=== PATIENT | male | born 1960 | race Caucasian/White ===

== ENCOUNTER 2024-10-27 08:51 | Day surgery (SDC) | payer OTHER, SELFPAY ==
[2024-08-08 13:51] VITALS: BMI 28.1
--- NOTE | 2024-10-26 11:44 | WPDANESEPPF ---
Anes - Initial Pre Proc Eval Procedure: Operation Date: 10/27/24 11:15 Proposed Procedures p Colonoscopy - Marc King MD Date/Time: 10/26/24 11:44 Surgeon: Marc King MD Pre Op Diagnosis: Family history of Colon Polyps Patient Data Age: 64 Gender: M Height: 1.78 m Weight: 90 kg Allergies Allergy/AdvReac Type Severity Reaction Status Date / Time aspirin AdvReac Nausea Verified 10/27/24 10:16 Home Medications Medication Instructions Recorded Confirmed Type Fish Oil 1 tab-cap PO DIRECTED 10/10/24 10/27/24 History PreserVision Lutein 1 tab-cap PO DIRECTED 10/10/24 10/27/24 History Vitamin D3 1 tab-cap PO DIRECTED 10/10/24 10/27/24 History albuterol sulfate 90 mcg/actuation 2 puff inhalation DIRECTED 10/10/24 10/27/24 History aerosol inhaler magnesium 1 tablet PO DIRECTED 10/10/24 10/27/24 History potassium 1 tab-cap PO DIRECTED 10/10/24 10/27/24 History Patient hx anesthesia problems: none Family hx anesthesia problems: none Results Review: All pre-operative results and documents have been reviewed as part of the pre-operative evaluation. [facility] Past Medical History Medical History (Updated 10/27/24 @ 10:51 by Marc King MD) Asthma PVD (peripheral vascular disease) Social History Social History (Updated 10/27/24 @ 10:57 by Florentin Dior DO) Smoking packs per day: 1 Smoking cigarettes per day: 20.0 Years smoked: 50 Smoking pack-years: 50.00 Smoking status: Current every day smoker Tobacco type: cigarettes Living arrangements: with family Anes - Eval Final PreProcedure Day of Procedure 10/26/24 11:44 Patient weight: overweight Heart: regular rate and rhythm Lungs: clear to auscultation Airway: Mallampati scale class II Neurological: alert and oriented Last oral intake: >/= 8 hours ASA classification: III Emergent: no Anesthetic plan: proceed Anesthesia type and monitoring: general GIVS and standard monitoring Results Review: All pre-operative results and documents have been reviewed as part of the pre-operative evaluation. Informed Consent: The patient's anesthetic plan and its attendant risks and benefits were discussed with the patient/family/POA. Questions were solicited and answers provided to the satisfaction of the patient/family/POA.
[2024-10-27 10:17] VITALS: BP 156/84; PULSE 79; RESP 18; TEMP 36.5; O2SAT 100
[2024-10-27] MEDS: LACTATED RINGERS 1,000 ML 150 ML IV CONT (10:22)
--- NOTE | 2024-10-27 10:49 | PM.HPGS ---
History of Present Illness History of Present Illness Consent: Risks, benefits, and alternatives have been discussed and questions answered. Patient agrees to proceed with procedure. Chief complaint: Family history of Colon Polyps Narrative: William Tillman is a 64 year old male presents for screening colonoscopy. Patient reports that his father had colon polyps. Patient reports that his own weight appetite and bowel movements were normal. Patient denies abdominal pain. He has had no bleeding. Family history as stated. Review of Systems Review of Systems: All systems reviewed & are unremarkable except as noted in HPI and below [facility] Past Medical History Medical History (Updated 10/27/24 @ 10:51 by Marc King MD) Asthma PVD (peripheral vascular disease) Social History Social History Smoking packs per day: 1 Smoking cigarettes per day: 20.0 Smoking status: Current every day smoker Tobacco type: cigarettes Living arrangements: with family Meds Home Medications and Allergies Home Medications Medication Instructions Recorded Confirmed Type Fish Oil 1 tab-cap PO DIRECTED 10/10/24 10/27/24 History PreserVision Lutein 1 tab-cap PO DIRECTED 10/10/24 10/27/24 History Vitamin D3 1 tab-cap PO DIRECTED 10/10/24 10/27/24 History albuterol sulfate 90 mcg/actuation 2 puff inhalation DIRECTED 10/10/24 10/27/24 History aerosol inhaler magnesium 1 tablet PO DIRECTED 10/10/24 10/27/24 History potassium 1 tab-cap PO DIRECTED 10/10/24 10/27/24 History Allergies Allergy/AdvReac Type Severity Reaction Status Date / Time aspirin AdvReac Nausea Verified 10/27/24 10:16 Vital Signs Vital Signs - 24 hr 10/27/24 10:17 Temperature 97.7 F Pulse Rate 79 Respiratory Rate 18 Blood Pressure 156/84 H Pulse Oximetry 100 Oxygen Delivery Room Air Exam Narrative: Physical exam reveals patient to be alert. Vital signs stable. HEENT exam is unremarkable. Take is anicteric. Lungs are clear to auscultation and to percussion. Heart is without murmur or extra sounds. Abdomen bowel sounds are present soft nontender with no organomegaly. Digital external rectal exam normal. Assessment and Plan Assessment and plan (1) Family history of colonic polyps: Code(s): Z83.719 - Family history of colon polyps, unspecified Status: Acute Assessment and Plan: Patient's father has had colon polyps. Follow-up colonoscopy at 5 year intervals has been suggested.
[2024-10-27 11:49] VITALS: BP 126/66; PULSE 70; RESP 18; O2SAT 98
[2024-10-27 11:59] VITALS: BP 117/93; PULSE 67; RESP 16; O2SAT 98
[2024-10-27 12:09] VITALS: BP 130/93; PULSE 66; RESP 15; O2SAT 97
--- NOTE | 2024-10-27 13:18 | WPDANESPN ---
Anes - Prog Note Post-Op Date/Time: 10/27/24 13:18 Cardiovascular status: normal Respiratory status: normal Airway patency: baseline Mental status: baseline Post-Op hydration status: normal Vital Signs: Last Vital Signs Temp 36.5 C 10/27/24 10:17 Pulse 66 10/27/24 12:09 Resp 15 10/27/24 12:09 BP 130/93 H 10/27/24 12:09 Pulse Ox 97 10/27/24 12:09 O2 Del Method Room Air 10/27/24 12:09 Pain Score (VAS): 0 I/O: Intake & Output 10/26/24 10/27/24 10/27/24 23:59 07:59 15:59 Intake Total 600 Balance 600 Post-procedural complaints: none Patient Feedback: Patient satisfied with anesthetic care. Other Findings: Patient vital signs back to baseline. Patient denies nausea and vomiting. Patient's pain under control. Patient OK for discharge.
== END 2024-10-27 12:29 | disposition home or self-care (01) ==
PROVIDERS: PCP Internal Medicine; Visit Provider Internal Medicine Gastroenterology
PROC: 0DJD8ZZ Inspection of Lower Intestinal Tract, Via Natural or Artificial Opening Endoscopic (ICD-10-PCS; CPT 45378; principal; 2024-10-27 11:15)
DX: Z83.718 Family history of other colon polyps (principal); K64.8 Other hemorrhoids
CPT/HCPCS: 45378